=== PATIENT | female | born 2005 | race Two or more races ===

== ENCOUNTER → 2025-05-08 | Outpatient (CLI) | payer MEDICAID ==
[2025-05-08 13:05] LABS: Hematocrit 39.3 % (36.0-46.0); Hemoglobin 13.5 g/dL (12.2-16.2); Mean Corpuscular Hemoglobin 30.6 pg (28.0-32.0); Mean Corpuscular Volume 89.3 fL (80.0-100.0); Nucleated Red Blood Cells % 0.0 %
== END | disposition home or self-care (01) ==
LOC: LAB 12:08
PROVIDERS: ATTEND Obstetrics & Gynecology
DX: O99.280 Endocrine, nutritional and metabolic diseases complicating pregnancy, unspecified trimester (principal); E28.2 Polycystic ovarian syndrome; Z3A.00 Weeks of gestation of pregnancy not specified
CPT/HCPCS: 36415; 84439; 84443; 85025; 86780

== ENCOUNTER 2025-05-14 12:10 | Outpatient (CLI) | payer MEDICAID ==
[2025-05-14 12:35] LABS: Hematocrit 36.6 % (36.0-46.0); Hemoglobin 12.5 g/dL (12.2-16.2); Mean Corpuscular Hemoglobin 30.2 pg (28.0-32.0); Mean Corpuscular Volume 88.9 fL (80.0-100.0); Nucleated Red Blood Cells % 0.0 %
[2025-05-15 19:06] LABS: Chlamydia Trachomatis, NAA Negative (Negative); Neisseria gonorrhoeae, NAA Negative (Negative)
== END 2025-05-14 17:00 | disposition home or self-care (01) ==
LOC: LAB 12:10
PROVIDERS: ATTEND Obstetrics & Gynecology
DX: Z34.80 Encounter for supervision of other normal pregnancy, unspecified trimester (principal); Z11.3 Encounter for screening for infections with a predominantly sexual mode of transmission; Z72.51 High risk heterosexual behavior; Z3A.00 Weeks of gestation of pregnancy not specified
CPT/HCPCS: 36415; 85025; 86780